=== PATIENT | female | born 1970 | race African-American/Black ===

== ENCOUNTER 2024-01-14 09:17 | Emergency (ER) | payer BC, SELFPAY ==
[2024-01-14 09:31] VITALS: BP 145/83; PULSE 74; RESP 18; TEMP 36.2; O2SAT 100
--- NOTE | 2024-01-14 09:49 | ED.EYEPROB ---
HPI - Eye Problem General Chief complaint: Eye Problems Stated complaint: LT eye bumb Time Seen by Provider: 01/14/24 09:20 Source: patient Mode of arrival: ambulatory Limitations: no limitations History of Present Illness HPI Narrative: 53-year-old female presents to [facility] with complaints of area of pain, swelling to her left upper eyelid since yesterday. Patient has been applying warm compresses to area with little relief. Patient wears glasses. Patient denies injury to her eye. Patient denies visual changes, purulent drainage, fever, body aches, chills, nausea, vomiting or diarrhea. Patient reports that she has had a stye to her upper eyelid in the past and her symptoms feel similar. Patient reports that she recently moved to the area and does not have an eye doctor at this time Onset (ago): day(s) (2) Onset description: gradual Location: left eye Eye Symptoms: redness Mechanism: none Associated symptoms: none Treatments Prior to Arrival: other (Warm compress) Related Data Home Medications Medication Instructions Recorded Confirmed albuterol sulfate 90 mcg/actuation inhalation 01/14/24 aerosol inhaler amlodipine 5 mg tablet mg 01/14/24 azelastine 137 mcg (0.1 %) nasal intranasal 01/14/24 spray cholecalciferol (vitamin D3) 10 10 mcg PO DAILY 01/14/24 01/14/24 mcg (400 unit) tablet ferrous sulfate 325 mg (65 mg 325 mg PO DAILY 01/14/24 01/14/24 iron) tablet multivit with minerals-iron 18 tablet PO 01/14/24 mg-folic ac 400 mcg-vit K 25 mcg tablet (Adults Multivitamin) semaglutide 0.25 mg or 0.5 mg (2 mg subcut 01/14/24 mg/3 mL) subcutaneous pen injector (Ozempic) telmisartan 80 mg tablet mg 01/14/24 turmeric 400 mg capsule mg PO 01/14/24 valacyclovir 01/14/24 01/14/24 Allergies Allergy/AdvReac Type Severity Reaction Status Date / Time No Known Allergies Allergy Verified 01/14/24 09:39 Review of Systems Constitutional: Constitutional: Denies chills, Denies fatigue, Denies fever(s) and Denies weakness Eyes: Comments: Area of pain and swelling to left upper eyelid ENT: Denies dizziness, Denies epistaxis and Denies nasal congestion Respiratory: Respiratory: Denies chest congestion, Denies cough, Denies dyspnea and Denies wheezing Gastrointestinal: Gastrointestinal: Denies diarrhea, Denies nausea and Denies vomiting Musculoskeletal: Musculoskeletal: Denies arthralgias and Denies joint swelling Integumentary/Breasts: Skin/Breast: Denies rash Neurologic: Denies dizziness, Denies syncope and Denies headache(s) PMFSH Comments At time of signature, I agree with nursing past medical, surgical, social and family history. There is no relevant family history pertinent to the presenting complaint. Exam Const: General: healthy appearing and no acute distress Nutritional Appearance: well nourished Orientation/consciousness: patient oriented x3 Limitations: no limitations HENMT: Head: normal to inspection Mouth: Yes Normal oral and palatal mucosa present and Yes moist mucous membranes Throat: posterior oropharynx normal and uvula midline Eyes: Conjunctivae: conjunctivae normal Pupils: Equal, round and reactive pupils present Direct Ophthalmoscopy: no photophobia Other: Small erythematous area of swelling representing a stye noted to left upper eyelid. Neck: Neck: normal visual inspection Resp: Effort & Inspection: normal respiratory effort and not labored Auscultation: clear to auscultation bilaterally, no crackles, no rales, no rhonchi and no wheezes Cardio: Rate: regular rate Rhythm: regular rhythm Heart sounds: no murmurs Skin: General skin exam: normal color Rashes: no rashes Neuro: General: patient oriented x3 Speech: normal speech Psych: Mental Status: mental status grossly normal Affect: normal affect Attitude: cooperative Course Course Level of Care: Express Care Visit Vital Signs Vital signs: Vital Signs Temperature 36.2 C
== END 2024-01-14 10:01 | disposition home or self-care (01) ==
PROVIDERS: Emergency Provider Nurse Practitioner Family
DX: H00.014 Hordeolum externum left upper eyelid (principal)
CPT/HCPCS: 99203; G0463